=== PATIENT | female | born 1990 | race Caucasian/White ===

== ENCOUNTER 2018-05-07 14:18 | Emergency (ER) | END 2018-05-07 19:44 | disposition home or self-care (01) ==

== ENCOUNTER 2018-12-30 06:35 | Inpatient (IN) | payer MEDICAID ==
[~2018-12-30] VITALS: Ht 162.6 cm; Wt 79.9 kg
[~2018-12-30 06:35] MED LIST: CEPH-443 PO; METO10TA92 PO
[2018-12-30 06:52] VITALS: BP 119/68; PULSE 80; RESP 18; Ht 162.6 cm; Wt 79.9 kg
--- NOTE | 2018-12-30 07:54 | TRIAGE ---
OB Triage Datetime Report Generated by CPN: 12/30/2018 07:54 Datetime: 12/30/2018 07:53 Time of Arrival: 12/30/2018 07:30 EGA: 40.2 Arrived By: Wheelchair Arrived From: Other Unit in Hospital Datetime: 12/30/2018 07:24 Maternal Assessment Level of Consciousness: Keenly Alert, Responsive DTR's/Clonus: DTRs 1+ Headache: Denies Blurred Vision: No Nausea/Vomiting: Denies RUQ Epigastric Pain: Denies Facial Edema: None Labor Evaluation Frequency: 2-5 Monitor Mode: External Duration (sec)2399: 40-80 Quality: Mild Pattern: Normal: <= 5 Contractions in 10 Minutes Resting Tone [place]: Relaxed Heart Rate FHR Baseline Rate: 120 Variability: Moderate 6-25 bpm Accelerations: 15X15 Decelerations: None Category: Category I Pain Assessment Pain Scale: 7 Pain Presence: Intermittent Pain Type: Cramping Pain Location: Abdomen; Back Pain Goal: 3 Membrane Status: Intact Datetime: 12/30/2018 07:14 Stage of : OB Triage Datetime: 12/30/2018 07:06 Vaginal Exam Dilatation (cms): 2.5 Effacement (%): 100 Station: -2 Exam By: COOPER SANCHEZ Membrane Status: Bulging Vaginal Bleeding: None Cervix, Consistency: Soft Cervix, Position: Midposition Presentation 'A': Cephalic Datetime: 12/30/2018 06:52 Stage of : OB Triage Assessment Type: Triage Maternal Assessment Level of Consciousness: Keenly Alert, Responsive DTR's/Clonus: DTRs 2+; No Clonus Headache: Denies Blurred Vision: No Respiratory Effort: Unlabored; Regular Rhythm; Equal Expansion Breath Sounds, Left: Clear and Equal Breath Sounds, Right: Clear and Equal Nausea/Vomiting: Denies RUQ Epigastric Pain: Denies Lower Extremities Edema: None Degree: None Upper Extremities Edema: None Degree: None Facial Edema: None Temperature Route: Oral Fall Risk Assessment History of Falling: (0) No Secondary Diagnosis: (0) No Ambulatory Aid: (0) Bedrest/Nurse Assist IV Therapy: (0) No Gait: (0) Normal/Bedrest/Immobile Mental Status: (0) Oriented to Own Ability Fall Score: 0 Fall Risk Score Definition: No Risk: No action required Comments: Patient states she feels active movement. Pain Assessment Pain Scale: 7 Pain Presence: Intermittent Pain Type: Contraction Pain Location: Abdomen Pain Relief Measures: Comfort Measures Datetime: 12/30/2018 06:51 Monitor Mode: External (Annotations: applied) Quality: Mild (Annotations: by palpation) Resting Tone [place]: Relaxed Monitor Mode: External US (Annotations: applied) Datetime: 12/30/2018 06:36 Time of Arrival: 12/30/2018 06:36 EGA: 40.2 Arrived By: Ambulatory Arrived From: Home Chief Complaint: Contractions Q5-6minutes since 12/29/18 at 0400 Movement: Present Contractions: Irregular Time Contractions Began: 12/29/2018 04:00 Contractions: Q5-6mins per patient Rupture of Membranes: Denies Vaginal Bleeding: None Vaginal Discharge: Denies Recent Sexual Intercouse: Denies Abdominal Trauma: Not Applicable Patient Complaints: Contractions Time Provider Notified: 12/30/2018 07:14 Provider Notified: VALENTIN/ROCKY Initial Plan: RICHARD x2
[2018-12-30] MEDS: LACTATED RINGER'S 1,000 ML IV SCH ×3 (08:29→21:25)
[2018-12-30] MEDS ORDERED: CARBOPROST 250 MCG INJ IM PRN (08:30)
[2018-12-30] MEDS ORDERED: OXYTOCIN 30 UNITS/LR 500 ML IV PRN (08:30)
[2018-12-30] MEDS ORDERED: OXYTOCIN 30 UNITS/LR 500 ML IV SCH ×2 (08:30)
[2018-12-30] MEDS ORDERED: METHYLERGONOVINE 0.2 MG INJ IM PRN (08:30)
[2018-12-30] MEDS ORDERED: BUTORPHANOL 2 MG INJ IV PRN (08:30)
[2018-12-30] MEDS ORDERED: MISOPROSTOL 200 MCG TAB PR PRN (08:30)
[2018-12-30] MEDS ORDERED: LIDOCAINE 1% (MPF) 30 ML INJ INJ PRN (08:30)
--- NOTE | 2018-12-30 13:00 | HP ---
Date/Time of Note Date/Time of Note DATE: 12/30/18 TIME: 12:58 OB - History Hx of Present Free Text/Dictation Patient is a 28-year-old 4 para 0 at 40 weeks and 1 day of gestation with estimated date of delivery December 29, 2018 Patient presents in labor with regular contractions She reports positive movement, denies vaginal bleeding or leaking fluid GBS status is negative Estimated Due Date: Dec 29, 2018 : 4 Para: 0 Care: Good Care Obstetrical Complications: None Medical Complications: None Past Family/Social History * Past Medical, Surgical, Family and Obstetric Histories reviewed from chart. OB Admission Exam Vital Signs Vital Signs Vital Signs Date Temp Pulse Resp B/P (MAP) Pulse Ox O2 O2 Flow FiO2 Time Delivery Rate 12/30/18 98.4 80 18 119/68 Room Air 06:52 (85) Physical Exam HEENT: WNL Heart: Rhythm Normal Lungs: Clear, Equal Abdomen: WNL Extremities: Normal Reflexes: Normal Cervical Dilatation: 3cm Effacement: 100% Station: -2 Membranes: Intact Heart Rate: 140's Accelerations: Accelerations Present Decelerations: No Decelerations Varibility: Moderate Contractions on Admission: < 5 Minutes Apart Intensity: Moderate Last 72 hours Lab Results CBC & BMP 12/30/18 08:18 PROCEDURE: US Obstetrical, limited CLINICAL INDICATION: Size and dates, estimated weight TECHNIQUE: Multiple real-time images were acquired of the patient's maternal abdomen utilizing a curved array transducer. COMPARISON: 12/04/2018 FINDINGS: There is a single live intrauterine fetus positioned cephalic. The placenta is implanted anteriorly and is grade III. There is no placenta previa or abruptio evident. The heart rate is 126 beats per minute. Measurements: BPD: 9.42 cm, corresponds to a age of 38 weeks 3 days Head circumference: 33.69 cm, corresponds to a age of 38 weeks 4 days Abdominal circumference: 36.36 cm, corresponds to a age of 40 weeks 2 days Femoral length: 7.56 cm, corresponds to a age of 38 weeks 5 days Average age by ultrasound: 39 weeks 0 days plus or minus 2 weeks 5 days Estimated weight: 3801 g plus or minus 570 g. The EFW falls is 63%. IMPRESSION: 1. Single live intrauterine fetus, cephalic presentation, unchanged. The heart rate is 126 bpm. 2. Anterior placenta, grade III, no previa or abruptio is evident. 3. Estimated age by ultrasound: 39 weeks 0 days plus or minus 2 weeks 5 days. The estimated weight is 3801 g. The EFW falls is 63%. There has been adequate growth since the previous study. The estimated date of delivery based on today's sonogram is 01/06/2019. Physician Sandra Date Time Electronically viewed and signed by Floresita Rios Physician on 12/30/2018 14:32 RH/ CC: ALLISON HIDALGO MD [id number] OB Assessment/Plan Reason for admission: active labor Other plan: Admit to labor and delivery Pain meds as needed Copies To: CC: RADHA HANSON BAHAREH MD Dec 30, 2018 13:00
[2018-12-30] MEDS ORDERED: DEXTROSE 5%-LR 1,000 ML IV PRN (21:00)
[2018-12-30] MEDS ORDERED: MINERAL OIL LIGHT 10 ML VIAL TOP PRN (21:00)
[2018-12-31] MEDS: LACTATED RINGER'S 1,000 ML IV* SCH ×2 (03:13→11:13)
--- NOTE | 2018-12-31 03:20 | LDN ---
Date/Time of Note Date/Time of Note DATE: 12/31/18 TIME: 03:17 Delivery Summary of a viable baby girl weighing 3640 grams or 8#, 20.25" long, and with Apgars of 9/9. Weeks of Gestation 40w 2d Placenta Delivered: Spontaneously Meconium: none Episiotomy: Yes Indication for episiotomy small, tight, non-stretchy entroitus Anesthesia type: Local Estimated blood loss: 350 Sponge & Needle done & correct: Yes All needle counts correct: Yes Any foreign bodies felt in the: No (vagina) Infant Delivery Information Sex Infant Sex: female Apgars 1 Minute: 9 5 Minute: 9 Suctioning Nose & mouth suctioned at dora: Yes Delee suction performed: No Umbilical Cord Umbilical cord with: 3 Vessels Cord presentations: no nuchal cord Cord Blood was obtained: Yes Mother & Baby Disposition Disposition Mom & Baby to Maternity; Good: Yes Baby to NICU: No THIEN HUYNH MD Dec 31, 2018 03:20
[2018-12-31 03:30] VITALS: BP 110/57; RESP 18
[2018-12-31] MEDS ORDERED: OXYTOCIN 30 UNITS/LR 500 ML IV PRN (03:30)
[2018-12-31] MEDS ORDERED: METHYLERGONOVINE 0.2 MG INJ IM PRN (03:30)
[2018-12-31] MEDS ORDERED: CARBOPROST 250 MCG INJ IM PRN (03:30)
[2018-12-31] MEDS ORDERED: MISOPROSTOL 200 MCG TAB PR PRN (03:30)
[2018-12-31] MEDS ORDERED: HYDROCODONE/APAP (5/325) TAB PO PRN (03:30)
[2018-12-31] MEDS: BENZOCAINE 20% 56 ML SPRAY TOP PRN (06:03)
[2018-12-31] MEDS: LANOLIN HPA 1 PKT TOP PRN (06:03)
[2018-12-31] MEDS: IBUPROFEN 600 MG TAB PO SCH ×3 (06:03→17:36)
[2018-12-31] MEDS: OXYTOCIN 30 UNITS/LR 500 ML IV SCH ×2 (06:37→13:13)
[2018-12-31 08:00] VITALS: BP 104/56; PULSE 85; RESP 18
[2018-12-31 12:00] VITALS: BP 98/67; PULSE 74; RESP 20
[2018-12-31 17:10] VITALS: BP 112/57; PULSE 88; RESP 18
[2018-12-31 20:45] VITALS: BP 99/66; PULSE 98; RESP 20
[2019-01-01 00:15] VITALS: BP 124/59; PULSE 84; RESP 22
[2019-01-01] MEDS: IBUPROFEN 600 MG TAB PO SCH ×4 (00:31→18:01)
[2019-01-01] MEDS: LACTATED RINGER'S 1,000 ML IV* SCH ×2 (03:13→11:13)
[2019-01-01 05:00] VITALS: BP 99/55; PULSE 68; RESP 21
[2019-01-01 08:00] VITALS: BP 110/62; PULSE 73; RESP 18
--- NOTE | 2019-01-01 14:50 | PN ---
Date/Time of Note Date/Time of Note DATE: 01/01/19 TIME: 14:48 OB Subjective Subjective Subjective PPD# 1 Patient is doing well. She denies nausea, vomiting, shortness of breath, chest pain, headache. She has been ambulating without difficulty, tolerating regular diet. Pain is well controlled on current medications OB Objective Objective Objective VS - Last 72 Hours, by Label Date Temp Pulse Resp B/P (MAP) Pulse Ox O2 O2 Flow FiO2 Time Delivery Rate 01/01/19 98.2 73 18 110/62 Room Air 08:00 (78) 01/01/19 97.9 68 21 99/55 (70) Room Air 05:00 01/01/19 97.5 84 22 124/59 Room Air 00:15 (80) 12/31/18 97.9 98 20 99/66 (77) Room Air 20:45 12/31/18 97.7 88 18 112/57 17:10 (75) 12/31/18 97.5 74 20 98/67 (77) 12:00 12/31/18 98.1 85 18 104/56 Room Air 08:00 (72) 12/31/18 98.3 18 110/57 Room Air 03:30 (74) 12/30/18 98.4 80 18 119/68 Room Air 06:52 (85) General: AAO X 3, comfortable, NAD, appropriate mood and affect. ABD: +BS. Soft, non-tender. Uterus 2 cm below umbilicus Flank: No CVA tenderness (B/L) LE: Mild edema. No clubbing, cyanosis, thigh or calf tenderness (B/L). Homans 'sign is negative OB Assessment/Plan Other plan: 28 years old s/p normal vaginal delivery at 40 weeks and 1 day. PPD#1 - AF, VSS - Baby is doing well, at bed side. She is bonding well - Contraception methods with R/B/A/FR discussed - Continue care - She would like to be discharged today - Rx and instruction given - Follow up in 2 and 6 weeks at clinic RADHA HANSON Jan 01, 2019 14:50
--- NOTE | 2019-01-01 14:51 | DS ---
Date/Time of Note Date/Time of Note DATE: 01/01/19 TIME: 14:50 Obstetrical Discharge Record Final Diagnosis Final Diagnosis: Term delivered Other Final Diagnosis 28 years old s/p normal vaginal delivery at 40 weeks and 1 day. PPD#1. course was unremarkable. She is ambulating and tolerating regular diet. She is voiding without difficulty. Pain is controlled on current medication. - AF, VSS - Baby is doing well, at bed side. She is bonding well - Contraception methods with R/B/A/FR discussed - Continue care - She would like to be discharged today - Rx and instruction given - Follow up in 2 and 6 weeks at clinic Vaginal Delivery Obstetrical Delivery: Spontaneous Condition on Discharge Physical Assessment Voiding: Yes Bowel Movement: Yes Breast: Soft, non-tender Fundus: Firm Calf Tenderness: No Patient Condition: Stable RADHA HANSON Jan 01, 2019 14:51
[2019-01-01] MEDS ORDERED: WITCH HAZEL/GLYCERIN PAD PR PRN (16:00)
[2019-01-01] MEDS: BENZOCAINE 20% 56 ML SPRAY TOP PRN (16:12)
[2019-01-01] MEDS: LANOLIN HPA 1 PKT TOP PRN (16:13)
[2019-01-01 16:44] VITALS: BP 111/74; PULSE 111; PULSE 74; RESP 18
--- NOTE | 2019-01-02 19:32 | DELSUM ---
Delivery Summary A-C Datetime Report Generated by CPN: 01/02/2019 19:31 DELIVERY PERSONNEL Silk Screen Painter: Mandie Carlin MATERNAL INFORMATION Delivery Anesthesia: Local Medications in Delivery: lidocaine, oxytocin 30 units in LR Delivery QBL (ml): 350 Placenta Cultured: No Maternal Complications: None RN Comments: reyes colunga RT LABOR SUMMARY EDC: 12/29/2018 00:00 No. Babies in Womb: 1 Attempted: No Labor Anesthesia: IV Sedation LABOR INFORMATION Reason for Induction: Not Applicable Onset of Labor: 12/30/2018 04:00 Complete Dilatation: 12/31/2018 00:30 Oxytocin: N/A Group B Beta Strep: Negative Antibiotics # of Doses: 0 Steroids Given: None Reason Steroids Not Administered: Not Applicable MEMBRANES Membranes Rupture Method: Spontaneous Rupture of Membranes: 12/30/2018 22:52 Length of Rupture (hr): 2.78 Amniotic Fluid Color: Clear Amniotic Fluid Amount: Large Amniotic Fluid Odor: Normal STAGES OF LABOR Stage 1 hr: 20 Stage 1 min: 30 Stage 2 hr: 1 Stage 2 min: 9 Stage 3 hr: 0 Stage 3 min: 13 Total Time in Labor hr: 21 Total Time in Labor min: 52 VAGINAL DELIVERY Episiotomy: Median Laceration Extension: N/A Laceration Type: None Laceration Repair: Yes Initial Vag Sponge Count: 10 Final Vag Sponge Count: 10 Initial Vag Sharps Count: 1 Final Vag Sharps Count: 2 Sponge Count Correct: Yes; Vaginal Sweep Performed Sharps Count Correct: Yes BABY A INFORMATION Infant Delivery Date/Time: 12/31/2018 01:39 Method of Delivery: Vaginal Born in Route : No : N/A Forceps: N/A Vacuum Extraction: N/A Shoulder Dystocia : N/A SHOULDER DYSTOCIA BABY A Delivery Date/Time: 12/31/2018 01:39 PRESENTATION/POSITION BABY A Presentation: Cephalic Cephalic Presentation: Vertex Vertex Position: Right Occipital Anterior Breech Presentation: N/A PLACENTA INFORMATION BABY A Placenta Delivery Time : 12/31/2018 01:52 Placenta Method of Delivery: Manual Removal Placenta Status: Delivered SCORES BABY A Heart Rate 1 min: >100 bpm Resp Effort 1 min: Good Cry Reflex Irritability 1 min: Cough/Sneeze/Pulls Away Muscle Tone 1 min: Active Motion Color 1 min: Body [place], Extremit Blue Resuscitation Effort 1 min: Tactile Stimulation SCORE 1 MIN: 9 Heart Rate 5 min: >100 bpm Resp Effort 5 min: Good Cry Reflex Irritability 5 min: Cough/Sneeze/Pulls Away Muscle Tone 5 min: Active Motion Color 5 min: Body [place], Extremit Blue Resuscitation Effort 5 min: N/A SCORE 5 MIN: 9 INFORMATION BABY A Gestational Age at Delivery: 40.2 Gestational Status: Full Term- 39- 40.6 Weeks Infant Outcome : Liveborn Infant Condition : Stable Infant Sex: Female IDENTIFICATION/MEDS BABY A ID Band Number: [id number] ID Band Location: Right Leg; Left Arm Sensor Applied: Yes Sensor Number: [id number] Sensor Location : Cord Clamp Vitamin K Given : Not Given Erythromycin Given: Not Given WEIGHT/LENGTH BABY A Birthweight (gm): 3640 Weight (lb): 8 Weight (oz): 0 Infant Length (in): 20.25 Length (cm): 51.44 CORD INFORMATION BABY A No. Cord Vessels: 3 Nuchal Cord : N/A Cord Blood Taken: Yes Banking/Donate Info: n/a Infant Suction: Mouth; Nose ASSESSMENT BABY A Infant Complications: None Physical Findings at Delivery: Within Normal Limits Respirations: Appears Normal Plant Ecologist/ALS Called : Yes Care By: nicu RT Transferred To: Remains with Mother
== END 2019-01-01 19:10 | disposition home or self-care (01) | DRG 807 ==
LOC: OBT 06:35 → L-D 06:35 → OBT 07:14 → L-D 07:14 → PP1 12-31 03:31
PROVIDERS: ADMIT Obstetrics & Gynecology; ATTEND Obstetrics & Gynecology
PROC: 10E0XZZ Delivery of Products of Conception, External Approach (ICD-10-PCS; principal; 2018-12-31)
DX: O48.0 Post-term pregnancy (principal); Z37.0 Single live birth; Z3A.40 40 weeks gestation of pregnancy
CPT/HCPCS: 76815; 80307; 85025; 85610; 85730; 86592; 86850; 86900; 86901; 87340; 99464; A4310; G0463; J0595; J2590; J7120